=== PATIENT | female | born 1970 | race Two or more races ===

== ENCOUNTER 2022-03-08 16:03 | Emergency (ER) | payer OTHER ==
[~2022-03-08] VITALS: Ht 157.5 cm; Wt 81.6 kg
[2022-03-08] MEDS ORDERED: LIDOCAINE 1% HCL (LOCAL ANESTH.) INJ 20ML MDV IJ ONE (17:45)
[2022-03-08] MEDS ORDERED: TETANUS-DIPTH-ACEL PERTUSSIS 0.5ML SYR Tdap IM ONE (18:00)
[2022-03-08] MEDS ORDERED: NEOMYCIN-BACITRACIN-POLYM UNITDOSE PKG TOP OINT TOP ONE (18:00)
[2022-03-08] MEDS ORDERED: IBUPROFEN 800 MG TAB PO ONE (18:00)
[2022-03-08] MEDS ORDERED: IBUP800T27 PO (18:11)
[2022-03-08] MEDS ORDERED: CEPH-509 PO (18:11)
[2022-03-08 18:40] VITALS: BP 124/79
== END 2022-03-08 18:59 | disposition home or self-care (01) ==
LOC: EDSEX 16:03 → ER 16:03
DX: S61.211A Laceration without foreign body of left index finger without damage to nail, initial encounter (principal); W26.0XXA Contact with knife, initial encounter; Y93.89 Activity, other specified; Y92.89 Other specified places as the place of occurrence of the external cause; Y99.8 Other external cause status
CPT/HCPCS: 90471; 90715; 99283; J2001

== ENCOUNTER → 2022-03-10 | Emergency (ER) | payer OTHER ==
[~2022-03-10] VITALS: Ht 157.5 cm; Wt 80.3 kg
[~2022-03-10] MED LIST: CEPH-509 PO; IBUP800T27 PO
[2022-03-10 15:58] VITALS: BP 131/57
== END | disposition home or self-care (01) ==
LOC: ER 15:37
DX: S61.209D Unspecified open wound of unspecified finger without damage to nail, subsequent encounter (principal); X58.XXXD Exposure to other specified factors, subsequent encounter

== ENCOUNTER 2023-09-01 11:10 | Inpatient (IN) | payer OTHER ==
[~2023-09-01] VITALS: Ht 157.5 cm; Wt 83.9 kg
[~2023-09-01 11:10] MED LIST changes: +IBUP-1456 PO; -IBUP800T27 PO
[2023-09-01] MEDS ORDERED: ALBUTEROL SULF 2.5 MG/0.5ML(0.5%) NEB SOLN HHN ONE (12:00)
[2023-09-01] MEDS ORDERED: methylPREDNISolone SOD SUCC 125 MG/2 ML VL IV ONE ×2 (12:00→19:15)
[2023-09-01] MEDS ORDERED: IPRATROPIUM BROM 0.5 MG/2.5ML INH SOL HHN ONE (12:00)
[2023-09-01 12:28] LABS: Basophils # (auto) 0.1 10 ^3/uL (0-0.2); Basophils % (auto) 1.2 % (0.0-2.0); Eosinophils # (auto) 0 10 ^3/uL (0-0.8); Eosinophils % (auto) 0.5 % (0.0-7.0); Hematocrit 48.6 % (36.0-46.0); Hemoglobin 15.9 g/dL (12.2-16.2); Lymphocytes # (auto) 0.2 10 ^3/uL (0.4-5.4); Lymphocytes % (auto) 2.6 % (10.0-50.0); Mean Corpuscular Hgb Conc. 32.7 g/dL (32.0-36.0); Mean Corpuscular Volume 88.8 fL (80.0-100.0); Monocytes # (auto) 0.2 10 ^3/uL (0-1.3); Monocytes % (auto) 2.4 % (0.0-12.0); Neutrophils # (auto) 8.1 10 ^3/uL (1.6-8.6); Neutrophils % (auto) 93.3 % (37.0-80.0); Nucleated Red Blood Cells % 0.1 %; Red Blood Cells 5.47 10^6/uL (4.0-5.20); Red Cell Distribution Width 14.1 % (11.8-14.3); White Blood Cell 8.7 10^3/uL (4.4-10.8)
[2023-09-01 12:42] LABS: COVID19 ANTIGEN SOFIA FIA NEGATIVE (NEGATIVE)
[2023-09-01 12:43] LABS: Alanine Aminotransferase 25 U/L (7-40); Albumin 5.1 g/dL (3.2-4.8); Alkaline Phosphatase 98 U/L (46-116); Anion Gap 7 (5-15); Aspartate Aminotransferase 17 U/L (13-40); BUN/Creatinine Ratio 13.6 (10.0-20.0); Bilirubin, Total 0.9 mg/dL (0.2-1.0); Blood Urea Nitrogen 8 mg/dL (9-23); Calcium 9.2 mg/dL (8.7-10.4); Carbon Dioxide 26 mmol/L (20-30); Chloride 103 mmol/L (98-107); Glucose 127 mg/dL (74-106); Magnesium 1.9 mg/dL (1.6-2.6); Potassium 3.9 mmol/L (3.5-5.1); Sodium 136 mmol/L (136-145); Total Protein 8.4 g/dL (5.7-8.2)
[2023-09-01 12:43] LABS: Rapid Influenza A Negative (Negative); Rapid Influenza B Negative (Negative)
[2023-09-01 14:14] LABS: Urine Bacteria NONE SEEN /hpf (None Seen); Urine Blood Negative /uL (Negative); Urine Clarity Clear (Clear); Urine Color Yellow (Yellow); Urine Mucus FEW (None Seen); Urine Protein, UAD 1+ (Negative); Urine Specific Gravity 1.026 (1.001-1.035); Urine Urobilinogen Normal (Negative); Urine WBC 1 /hpf (0 - 5); Urine pH 6.5 (5.0-8.0)
[2023-09-01] MEDS ORDERED: ALBUTEROL SULF 2.5 MG/0.5ML(0.5%) NEB SOLN NEB ONE (19:15)
[2023-09-01] MEDS ORDERED: ALBUTEROL SULF 2.5 MG/0.5ML(0.5%) NEB SOLN ONE (19:15)
[2023-09-01] MEDS ORDERED: IPRATROPIUM BROM 0.5 MG/2.5ML INH SOL NEB ONE (19:15)
[2023-09-01] MEDS ORDERED: ONDANSETRON HCL 4 MG/2 ML VIAL IV PRN (20:45)
[2023-09-01] MEDS ORDERED: MORPHINE SULFATE INJ 2 MG/ml SYRG IV PRN (20:45)
[2023-09-01] MEDS ORDERED: NITROGLYCERIN 0.4 MG SL TAB SL PRN (20:45)
[2023-09-01 20:57] VITALS: BP 166/89; PULSE 111; RESP 26; O2SAT 98
[2023-09-01 21:00] VITALS: PULSE 115; RESP 25; O2SAT 100
[2023-09-01] MEDS: ACETAMINOPHEN 325 MG TAB PO PRN (22:11)
[2023-09-01] MEDS: ATORVASTATIN 20 MG TAB PO SCH (22:11)
[2023-09-01 23:46] LABS: Lactic Acid w/Reflex 2.7 mmol/L (0.4-2.0)
[2023-09-02] VITALS (11 sets, daily range): BP systolic 110; BP diastolic 74; PULSE 103–116; RESP 18–28; TEMP 98.4; O2SAT 91–98
[2023-09-02] MEDS ORDERED: SODIUM CHLORIDE 0.9% 1,000 ML IV ONE (00:15)
[2023-09-02] MEDS ORDERED: cefTRIAXone 1GM/50ML D5W 50 ML IV ONE ×2 (00:15→11:30)
[2023-09-02] MEDS: ALBUTEROL SULF 2.5 MG/0.5ML(0.5%) NEB SOLN NEB PRN ×2 (04:52→09:05)
[2023-09-02] MEDS: IPRATROPIUM BROM 0.5 MG/2.5ML INH SOL NEB PRN ×2 (04:52→09:06)
[2023-09-02 05:28] LABS: Basophils # (auto) 0 10 ^3/uL (0-0.2); Eosinophils # (auto) 0 10 ^3/uL (0-0.8); Hematocrit 46.6 % (36.0-46.0); Hemoglobin 15.3 g/dL (12.2-16.2); Lymphocytes # (auto) 0.4 10 ^3/uL (0.4-5.4); Lymphocytes % (auto) 6.6 % (10.0-50.0); Mean Corpuscular Hemoglobin 29.2 pg (28.0-32.0); Mean Corpuscular Hgb Conc. 32.8 g/dL (32.0-36.0); Mean Corpuscular Volume 88.9 fL (80.0-100.0); Monocytes # (auto) 0.2 10 ^3/uL (0-1.3); Monocytes % (auto) 2.7 % (0.0-12.0); Neutrophils # (auto) 5.9 10 ^3/uL (1.6-8.6); Neutrophils % (auto) 90.7 % (37.0-80.0); Nucleated Red Blood Cells % 0.1 %; Red Blood Cells 5.24 10^6/uL (4.0-5.20); Red Cell Distribution Width 14.4 % (11.8-14.3); White Blood Cell 6.5 10^3/uL (4.4-10.8)
[2023-09-02 05:39] LABS: Alanine Aminotransferase 27 U/L (7-40); Albumin 4.9 g/dL (3.2-4.8); Alkaline Phosphatase 89 U/L (46-116); Anion Gap 6 (5-15); Aspartate Aminotransferase 22 U/L (13-40); BUN/Creatinine Ratio 13.8 (10.0-20.0); Bilirubin, Total 0.5 mg/dL (0.2-1.0); Blood Urea Nitrogen 8 mg/dL (9-23); Calcium 9.3 mg/dL (8.7-10.4); Carbon Dioxide 27 mmol/L (20-30); Chloride 107 mmol/L (98-107); Glucose 151 mg/dL (74-106); Sodium 140 mmol/L (136-145)
[2023-09-02] MEDS ORDERED: cefTRIAXone 1GM/50ML D5W 50 ML IV SCH (09:00)
[2023-09-02] MEDS: ASPirin 81 mg TAB PO SCH (10:11)
[2023-09-02] MEDS ORDERED: ALBUTEROL SULF 2.5 MG/0.5ML(0.5%) NEB SOLN NEB ONE (11:15)
[2023-09-02] MEDS ORDERED: methylPREDNISolone SOD SUCC 125 MG/2 ML VL IV ONE (11:30)
[2023-09-02] MEDS ORDERED: PANTOPRAZOLE 40 MG/10 ML VIAL INJ IV ONE (11:30)
[2023-09-02] MEDS ORDERED: AZITHROMYCIN 500MG/ 250ML 250 ML IV ONE (11:30)
[2023-09-02] MEDS: methylPREDNISolone SOD SUCC 40 MG/ML VL IV SCH ×2 (14:25→21:56)
[2023-09-02] MEDS: IPRATROPIUM BROM 0.5 MG/2.5ML INH SOL NEB SCH ×3 (14:54→22:09)
[2023-09-02] MEDS: ALBUTEROL SULF 2.5 MG/0.5ML(0.5%) NEB SOLN NEB SCH ×3 (14:54→22:09)
[2023-09-02] MEDS: ATORVASTATIN 20 MG TAB PO SCH (21:55)
[2023-09-02] MEDS: ACETAMINOPHEN 325 MG TAB PO PRN (22:00)
[2023-09-03] VITALS (19 sets, daily range): BP systolic 104–135; BP diastolic 62–87; PULSE 75–108; RESP 18–24; TEMP 98–98.9; O2SAT 92–99
[2023-09-03] MEDS: ALBUTEROL SULF 2.5 MG/0.5ML(0.5%) NEB SOLN NEB SCH ×6 (03:21→22:07)
[2023-09-03] MEDS: IPRATROPIUM BROM 0.5 MG/2.5ML INH SOL NEB SCH ×6 (03:22→22:07)
[2023-09-03 07:26] LABS: Basophils # (auto) 0 10 ^3/uL (0-0.2); Eosinophils # (auto) 0 10 ^3/uL (0-0.8); Hematocrit 43.4 % (36.0-46.0); Hemoglobin 14.3 g/dL (12.2-16.2); Lymphocytes # (auto) 0.5 10 ^3/uL (0.4-5.4); Mean Corpuscular Hemoglobin 29.3 pg (28.0-32.0); Mean Corpuscular Volume 88.7 fL (80.0-100.0); Monocytes # (auto) 0.5 10 ^3/uL (0-1.3); Neutrophils # (auto) 5.8 10 ^3/uL (1.6-8.6); Nucleated Red Blood Cells % 0.1 %; Red Cell Distribution Width 14.3 % (11.8-14.3); White Blood Cell 6.8 10^3/uL (4.4-10.8)
[2023-09-03] MEDS: guaiFENesin-DM 100/10mg/5ml SYR PO PRN ×2 (07:26→22:21)
[2023-09-03] MEDS: methylPREDNISolone SOD SUCC 40 MG/ML VL IV SCH ×3 (07:28→21:47)
[2023-09-03 07:39] LABS: Anion Gap 5 (5-15); Calcium 8.8 mg/dL (8.7-10.4); Carbon Dioxide 28 mmol/L (20-30); Chloride 108 mmol/L (98-107); Potassium 4.3 mmol/L (3.5-5.1); Sodium 141 mmol/L (136-145)
[2023-09-03 07:44] LABS: Glucose 128 mg/dL (74-106)
[2023-09-03 07:45] LABS: BUN/Creatinine Ratio 22.8 (10.0-20.0); Blood Urea Nitrogen 13 mg/dL (9-23); Magnesium 2.4 mg/dL (1.6-2.6)
[2023-09-03] MEDS: cefTRIAXone 1GM/50ML D5W 50 ML IV SCH ×2 (09:00→09:24)
[2023-09-03] MEDS: ASPirin 81 mg TAB PO SCH (09:24)
[2023-09-03] MEDS ORDERED: PANTOPRAZOLE 40 MG/10 ML VIAL INJ IV SCH (10:00)
[2023-09-03] MEDS: AZITHROMYCIN 500MG/ 250ML 250 ML IV SCH (10:12)
[2023-09-03] MEDS: ATORVASTATIN 20 MG TAB PO SCH (21:47)
[2023-09-04] VITALS (21 sets, daily range): BP systolic 114–122; BP diastolic 66–70; PULSE 64–98; RESP 16–20; TEMP 97.6–98.4; O2SAT 91–100
[2023-09-04] MEDS: IPRATROPIUM BROM 0.5 MG/2.5ML INH SOL NEB SCH ×6 (02:20→22:24)
[2023-09-04] MEDS: ALBUTEROL SULF 2.5 MG/0.5ML(0.5%) NEB SOLN NEB SCH ×6 (02:20→22:24)
[2023-09-04] MEDS: methylPREDNISolone SOD SUCC 40 MG/ML VL IV SCH ×2 (06:04→21:04)
[2023-09-04] MEDS: cefTRIAXone 1GM/50ML D5W 50 ML IV SCH ×2 (08:46→08:48)
[2023-09-04] MEDS: AZITHROMYCIN 500MG/ 250ML 250 ML IV SCH (09:53)
[2023-09-04] MEDS: ASPirin 81 mg TAB PO SCH (09:54)
[2023-09-04] MEDS: PANTOPRAZOLE 40 MG TAB PO SCH (09:56)
[2023-09-04] MEDS: ATORVASTATIN 20 MG TAB PO SCH (21:04)
[2023-09-05] VITALS (20 sets, daily range): BP systolic 103–138; BP diastolic 50–72; PULSE 61–89; RESP 14–20; TEMP 98.1–99.5; O2SAT 84–98
[2023-09-05] MEDS: ALBUTEROL SULF 2.5 MG/0.5ML(0.5%) NEB SOLN NEB SCH ×6 (02:18→22:25)
[2023-09-05] MEDS: IPRATROPIUM BROM 0.5 MG/2.5ML INH SOL NEB SCH ×6 (02:18→22:25)
[2023-09-05] MEDS: ASPirin 81 mg TAB PO SCH (09:41)
[2023-09-05] MEDS: methylPREDNISolone SOD SUCC 40 MG/ML VL IV SCH ×2 (09:41→22:17)
[2023-09-05] MEDS: cefTRIAXone 1GM/50ML D5W 50 ML IV SCH (09:41)
[2023-09-05] MEDS: AZITHROMYCIN 250 MG TAB PO SCH (09:42)
[2023-09-05] MEDS: PANTOPRAZOLE 40 MG TAB PO SCH (09:42)
[2023-09-05] MEDS ORDERED: FUROSEMIDE 20 MG/2 ML VIAL IV ONE (11:00)
[2023-09-05] MEDS ORDERED: POTASSIUM CHL 20 Meq TABLET PO ONE (11:00)
[2023-09-05] MEDS: ATORVASTATIN 20 MG TAB PO SCH (22:05)
[2023-09-06] VITALS (20 sets, daily range): BP systolic 119–139; BP diastolic 73–87; PULSE 63–94; RESP 16–21; TEMP 97.7–98.5; O2SAT 90–99
[2023-09-06] MEDS: ALBUTEROL SULF 2.5 MG/0.5ML(0.5%) NEB SOLN NEB SCH ×7 (02:32→22:09)
[2023-09-06] MEDS: IPRATROPIUM BROM 0.5 MG/2.5ML INH SOL NEB SCH ×7 (02:33→22:09)
[2023-09-06] MEDS: methylPREDNISolone SOD SUCC 40 MG/ML VL IV SCH ×2 (10:17→21:44)
[2023-09-06] MEDS: PANTOPRAZOLE 40 MG TAB PO SCH (10:18)
[2023-09-06] MEDS: cefTRIAXone 1GM/50ML D5W 50 ML IV SCH (10:18)
[2023-09-06] MEDS: AZITHROMYCIN 250 MG TAB PO SCH (10:18)
[2023-09-06] MEDS: ASPirin 81 mg TAB PO SCH (10:18)
[2023-09-06] MEDS ORDERED: PRED20TA2 PO (12:19)
[2023-09-06] MEDS ORDERED: ALBUAER3 IN (12:19)
[2023-09-06] MEDS ORDERED: AZIT-43 PO (12:19)
[2023-09-06 16:12] LABS: Base Excess 4.4 mmol/L (-2.0-2.0)
[2023-09-06] MEDS: ATORVASTATIN 20 MG TAB PO SCH (21:44)
[2023-09-07] VITALS (12 sets, daily range): BP systolic 108–123; BP diastolic 62–66; PULSE 66–93; RESP 14–18; TEMP 98.2–98.6; O2SAT 93–99
[2023-09-07] MEDS: IPRATROPIUM BROM 0.5 MG/2.5ML INH SOL NEB SCH ×4 (01:56→13:34)
[2023-09-07] MEDS: ALBUTEROL SULF 2.5 MG/0.5ML(0.5%) NEB SOLN NEB SCH ×4 (01:57→13:34)
[2023-09-07] MEDS: cefTRIAXone 1GM/50ML D5W 50 ML IV SCH (09:19)
[2023-09-07] MEDS: AZITHROMYCIN 250 MG TAB PO SCH (09:20)
[2023-09-07] MEDS: methylPREDNISolone SOD SUCC 40 MG/ML VL IV SCH (09:20)
[2023-09-07] MEDS: PANTOPRAZOLE 40 MG TAB PO SCH (09:20)
[2023-09-07] MEDS: ASPirin 81 mg TAB PO SCH (09:20)
== END 2023-09-07 15:35 | disposition home or self-care (01) | DRG 193 ==
LOC: ER 11:10 → TELE 20:49 → TELE-EAST 09-02 22:52 → EAST 09-04 11:57
PROVIDERS: ADMIT Nurse Practitioner; ATTEND Internal Medicine
DX: J18.9 Pneumonia, unspecified organism (principal); I21.A1 Myocardial infarction type 2; J96.01 Acute respiratory failure with hypoxia; J45.901 Unspecified asthma with (acute) exacerbation; E66.9 Obesity, unspecified; Z20.822 Contact with and (suspected) exposure to COVID-19; M54.50 Low back pain, unspecified; R00.0 Tachycardia, unspecified; Z68.33 Body mass index [BMI] 33.0-33.9, adult; Z83.3 Family history of diabetes mellitus
CPT/HCPCS: 36415; 36600; 71045; 71046; 80048; 80053; 81001; 82805; 83605; 83735; 83880; 84484; 85025; 85379; 87426; 87804; 93005; 93306; 94640; 94644; 96374; 96376; 99291; C9113; G0378